=== PATIENT | male | born 1950 | race Caucasian/White ===

== ENCOUNTER 2016-11-14 01:53 | Emergency (ER) | payer OTHER, MEDICARE ==
[~2016-11-14] VITALS: Ht 180.3 cm; Wt 81.7 kg
[~2016-11-14 01:53] MED LIST: AMBIEN10 MG PO; CALCIUM 600 +1 EAC4 PO; CEPHALEXIN500 MG PO; ELAVIL25 MG PO; Elavil PO; FLONASE16 G1 BOTH NARES; Flonase BOTH NARES; HYDROCODONE-CH473 ML; HYDROCODONE-CH473 ML PO; Keflex PO; OXYCODONE HCL5 MG PO; PREDNISONE5 MG PO; RANITIDINE HCL300 MG PO; SINGULAIR10 MG PO; SYMBICORT60 INHALAT IH; Singulair PO; VIMOVO 500-201 EAC1 PO; ZOFRAN ODT4 MG PO; predniSONE PO
[2016-11-14 02:56] LABS: CARBON DIOXIDE (BICARBONATE) 27.1 MEQ/L (20-31)
[2016-11-14 02:57] LABS: HEMATOCRIT 44.1 % (38.0-50.0); MCH 31.3 PG (29.0-34.0); MCHC 33.6 G/DL (30.0-36.0); MCV 93.2 FL (86-99); PLATELET COUNT 212 K/uL (156-360); RBC DIS.WIDTH-CV 13.4 % (11.8-14.6); RBC DIS.WIDTH-SD 44.3 % (39-53); RED BLOOD COUNT 4.73 M/uL (4.00-5.50); WHITE BLOOD COUNT 9.8 K/uL (4.1-10.2)
[2016-11-14 03:09] LABS: CHLORIDE 110 mEq/L (99-109); POTASSIUM 3.4 mEq/L (3.7-5.4); SODIUM 142 mEq/L (136-147)
[2016-11-14 03:10] LABS: GLUCOSE 107 mg/dL (70-99)
[2016-11-14 03:12] LABS: ANION GAP 9 MEQ/L (2-14)
[2016-11-14 03:14] LABS: GFR ESTIMATE (CALCULATED) > 59 mL/min/
[2016-11-14 03:15] LABS: UREA NITROGEN (BUN) 9 mg/dL (9-23)
[2016-11-14 03:17] LABS: TROP-I INTERPRETATION NEGATIVE; TROPONIN-I < 0.01 ng/mL (0.0-0.30)
[2016-11-14] MEDS ORDERED: LEVAQUIN750 MG PO (03:55)
[2016-11-14] MEDS ORDERED: PROVENTIL HFA6.7 GM IH (03:55)
[2016-11-14] MEDS ORDERED: PREDNISONE20 MG PO (03:55)
[2016-11-14 04:02] VITALS: BP 157/93
== END 2016-11-14 04:09 | disposition home or self-care (01) ==
LOC: EME 01:53
PROVIDERS: Emergency Medicine
DX: J06.9 Acute upper respiratory infection, unspecified (principal); J44.1 Chronic obstructive pulmonary disease with (acute) exacerbation
CPT/HCPCS: 71010; 80048; 82803; 83605; 84484; 85027; 87040; 93005; 94640; 99281; 99284

== ENCOUNTER 2017-11-14 17:37 | Emergency (ER) | payer OTHER, MEDICARE ==
[~2017-11-14] VITALS: Ht 175.3 cm; Wt 81.3 kg
[~2017-11-14 17:37] MED LIST changes: +LEVAQUIN750 MG PO; +PREDNISONE20 MG PO; +PROVENTIL HFA6.7 GM IH
[2017-11-14 18:18] LABS: BASOPHIL (%) 0.5 % (0-1); BASOPHIL COUNT 0.1 K/uL (0-0.1); EOSINOPHIL (%) 0.5 % (0-5); EOSINOPHIL COUNT 0.1 K/uL (0-0.3); HEMATOCRIT 45.1 % (38.0-50.0); HEMOGLOBIN 15.6 G/DL (12.5-16.6); IMMATURE GRANULOCYTE (%) 0.3 % (0.0-0.7); LYMPHOCYTE (%) 16.7 % (15-42); LYMPHOCYTE COUNT 2.2 K/uL (1.0-2.8); MCH 32.2 PG (29.0-34.0); MCHC 34.6 G/DL (30.0-36.0); MONOCYTE (%) 5.8 % (3-12); MONOCYTE COUNT 0.8 K/uL (0-0.8); NEUTROPHIL (%) 76.2 % (45-76); NEUTROPHIL COUNT 10.1 K/uL (1.8-6.4); PLATELET COUNT 186 K/uL (156-360); RBC DIS.WIDTH-CV 12.9 % (11.8-14.6); RED BLOOD COUNT 4.85 M/uL (4.00-5.50); WHITE BLOOD COUNT 13.3 K/uL (4.1-10.2)
[2017-11-14 18:26] LABS: ALBUMIN 4.4 g/dL (3.2-4.8)
[2017-11-14 18:27] LABS: CHLORIDE 104 mEq/L (99-109); POTASSIUM 3.2 mEq/L (3.7-5.4); SODIUM 140 mEq/L (136-147)
[2017-11-14 18:29] LABS: GLUCOSE 140 mg/dL (70-99); TOTAL PROTEIN 7.2 g/dL (6.4-8.3)
[2017-11-14 18:31] LABS: TOTAL BILIRUBIN 0.5 mg/dL (0.0-1.0)
[2017-11-14 18:32] LABS: ALKALINE PHOSPHATASE 121 IU/L (3-129)
[2017-11-14 18:33] LABS: CREATININE 1.3 mg/dL (0.6-1.3); GFR ESTIMATE (CALCULATED) 58 mL/min/ (58.99-99999)
[2017-11-14 18:34] LABS: AST (GOT) 26 IU/L (2-34); UREA NITROGEN (BUN) 10 mg/dL (9-23)
[2017-11-14 18:35] LABS: ALT (GPT) 40 IU/L (3-49)
[2017-11-14 18:36] LABS: LIPASE 44 U/L (1.0-51.0)
[2017-11-14 20:12] LABS: TROP-I INTERPRETATION NEGATIVE; TROPONIN-I < 0.01 ng/mL (0.0-0.30)
[2017-11-14 21:27] VITALS: BP 116/78
== END 2017-11-14 21:28 | disposition home or self-care (01) ==
LOC: EME 17:37
PROVIDERS: Emergency Medicine
DX: R10.13 Epigastric pain (principal); E87.6 Hypokalemia; I45.10 Unspecified right bundle-branch block; J45.909 Unspecified asthma, uncomplicated
CPT/HCPCS: 74177; 80053; 81003; 83690; 84484; 85025; 93005; 99281; 99285; J2270; J2405; J3010; J7030

== ENCOUNTER 2018-05-22 09:05 | Observation (INO) | payer OTHER, MEDICARE ==
[~2018-05-22] VITALS: Ht 175.3 cm; Wt 86.0 kg
[2018-05-22 09:31] LABS: BASOPHIL (%) 0.8 % (0-1); BASOPHIL COUNT 0.1 K/uL (0-0.1); EOSINOPHIL (%) 1.2 % (0-5); EOSINOPHIL COUNT 0.1 K/uL (0-0.3); HEMATOCRIT 43.6 % (38.0-50.0); IMMATURE GRANULOCYTE (%) 0.3 % (0.0-0.7); LYMPHOCYTE (%) 19.8 % (15-42); LYMPHOCYTE COUNT 2.1 K/uL (1.0-2.8); MCH 31.6 PG (29.0-34.0); MCHC 34.4 G/DL (30.0-36.0); MCV 91.8 FL (86-99); MONOCYTE (%) 5.9 % (3-12); MONOCYTE COUNT 0.6 K/uL (0-0.8); NEUTROPHIL COUNT 7.6 K/uL (1.8-6.4); PLATELET COUNT 207 K/uL (156-360); RBC DIS.WIDTH-CV 13.3 % (11.8-14.6); RBC DIS.WIDTH-SD 45.1 % (39-53); RED BLOOD COUNT 4.75 M/uL (4.00-5.50); WHITE BLOOD COUNT 10.6 K/uL (4.1-10.2)
[2018-05-22 09:40] LABS: CHLORIDE 104 mEq/L (99-109); SODIUM 142 mEq/L (136-147)
[2018-05-22 09:41] LABS: GLUCOSE 115 mg/dL (70-99)
[2018-05-22 09:45] LABS: CREATININE 1.1 mg/dL (0.6-1.3); GFR ESTIMATE (CALCULATED) > 59 mL/min/ (58.99-99999)
[2018-05-22 09:46] LABS: UREA NITROGEN (BUN) 12 mg/dL (9-23)
[2018-05-22 09:52] LABS: TROP-I INTERPRETATION NEGATIVE; TROPONIN-I < 0.01 ng/mL (0.0-0.30)
[2018-05-22] MEDS ORDERED: MORPHINE SULFAT15 M1 PO (11:46)
[2018-05-22] MEDS ORDERED: NORTRIPTYLINE H75 MG PO (11:47)
[2018-05-22] MEDS ORDERED: GABAPENTIN300 MG PO (11:47)
[2018-05-22] MEDS ORDERED: INCRUSE ELLI62.5 MCG IH (11:47)
[2018-05-22] MEDS ORDERED: CELECOXIB200 MG PO (11:47)
[2018-05-22] MEDS ORDERED: PANTOPRAZOLE SO40 MG PO (11:48)
[2018-05-22] MEDS ORDERED: HYDROCHLOROTHIA25 MG PO (11:48)
[2018-05-22] MEDS ORDERED: TRAZODONE HCL50 MG PO (11:48)
[2018-05-22] MEDS ORDERED: MONTELUKAST SOD10 MG PO (11:49)
[2018-05-22] MEDS ORDERED: MS CONTIN,ORAMO15 M1 PO (11:49)
[2018-05-22] MEDS ORDERED: THEO-DUR,THEOC300 MG PO (11:49)
[2018-05-22] MEDS ORDERED: LO-DOSE ASPIRIN81 M1 PO (11:50)
[2018-05-22] MEDS ORDERED: LIPITOR20 MG PO (11:50)
[2018-05-22] MEDS ORDERED: MEN 50 PLUS MU1 EACH PO (11:50)
[2018-05-22] MEDS ORDERED: FLONASE16 G1 BOTH NARES (11:51)
[2018-05-22 13:54] LABS: HDL CHOLESTEROL 40 MG/DL (Desirable>=40); LDL CHOLESTEROL 123 mg/dL (Desirable<100); NON-HDL CHOLESTEROL 158 mg/dL (Desirable<160); TOTAL CHOLESTEROL 198 mg/dL (Desirable<200); TRIGLYCERIDES 177 MG/DL (Normal: <150)
[2018-05-22 13:59] VITALS: BP 141/75
[2018-05-22 16:04] VITALS: BP 147/91
[2018-05-22 19:10] LABS: TROP-I INTERPRETATION NEGATIVE; TROPONIN-I < 0.01 ng/mL (0.0-0.30)
[2018-05-22 19:34] VITALS: BP 127/81
[2018-05-23 00:12] VITALS: BP 129/67
[2018-05-23 02:12] LABS: TROP-I INTERPRETATION NEGATIVE; TROPONIN-I < 0.01 ng/mL (0.0-0.30)
[2018-05-23 03:56] VITALS: BP 101/67
[2018-05-23 04:09] LABS: HEMATOCRIT 38.8 % (38.0-50.0); HEMOGLOBIN 13.6 G/DL (12.5-16.6); MCH 32.2 PG (29.0-34.0); MCHC 35.1 G/DL (30.0-36.0); MCV 91.7 FL (86-99); PLATELET COUNT 201 K/uL (156-360); RBC DIS.WIDTH-CV 13.4 % (11.8-14.6); RBC DIS.WIDTH-SD 45.6 % (39-53); RED BLOOD COUNT 4.23 M/uL (4.00-5.50); WHITE BLOOD COUNT 10.6 K/uL (4.1-10.2)
[2018-05-23 04:15] LABS: ALBUMIN 3.7 g/dL (3.2-4.8); CHLORIDE 103 mEq/L (99-109); POTASSIUM 3.2 mEq/L (3.7-5.4); SODIUM 139 mEq/L (136-147)
[2018-05-23 04:17] LABS: GLUCOSE 106 mg/dL (70-99); TOTAL PROTEIN 5.7 g/dL (6.4-8.3)
[2018-05-23 04:19] LABS: TOTAL BILIRUBIN 0.5 mg/dL (0.0-1.0)
[2018-05-23 04:21] LABS: ALKALINE PHOSPHATASE 95 IU/L (3-129); CREATININE 1.1 mg/dL (0.6-1.3); GFR ESTIMATE (CALCULATED) > 59 mL/min/ (58.99-99999)
[2018-05-23 04:22] LABS: UREA NITROGEN (BUN) 13 mg/dL (9-23)
[2018-05-23 04:23] LABS: AST (GOT) 22 IU/L (2-34)
[2018-05-23 04:24] LABS: ALT (GPT) 28 IU/L (3-49)
[2018-05-23 07:20] VITALS: BP 127/76
[2018-05-23] MEDS ORDERED: CARVEDILOL3.125 MG PO (08:09)
== END 2018-05-23 11:56 | disposition home or self-care (01) ==
LOC: EME 09:05 → 4SOUTH 10:57 → EDOF 10:57 → ENRESERV 11:19 → 4SOUTH 13:43 → ENRESERV 13:47 → 4SOUTH 13:49
PROVIDERS: Emergency Medicine; Internal Medicine
DX: R07.89 Other chest pain (principal); K21.9 Gastro-esophageal reflux disease without esophagitis; F41.9 Anxiety disorder, unspecified; J44.9 Chronic obstructive pulmonary disease, unspecified; E78.5 Hyperlipidemia, unspecified; M54.9 Dorsalgia, unspecified; Z79.82 Long term (current) use of aspirin; Z88.0 Allergy status to penicillin; Z80.1 Family history of malignant neoplasm of trachea, bronchus and lung
CPT/HCPCS: 71045; 71275; 80048; 80053; 80061; 83880; 84484; 85025; 85027; 93005; 94640; 94799; 99281; 99285; G0378; J0456; J1650; J1885; J2270; S0028